=== PATIENT | female | born 1950 | race Caucasian/White ===

== ENCOUNTER 2017-01-17 18:54 | Inpatient (IN) | payer OTHER ==
[~2017-01-17] VITALS: Ht 162.6 cm; Wt 81.6 kg
[2017-01-17 20:05] LABS: BASOPHIL % 0.3 % (0-2); PLATELET COUNT 205 x10^3mcL (130-400)
[2017-01-17 20:08] LABS: RED CELL DISTRIBUTION WIDTH 15.8 % (11.5-14.5)
[2017-01-17 20:32] LABS: CARBON DIOXIDE 23.5 mmol/L (21-32); CREATININE SERUM 1.1 mg/dL (0.6-1.0); POTASSIUM SERUM 3.9 mmol/L (3.5-5.1)
[2017-01-17 20:36] LABS: ALBUMIN 3.9 g/dL (3.4-5.0); BILIRUBIN TOTAL 0.31 mg/dL (0.20-1.00); TOTAL PROTEIN, SERUM 8.1 g/dL (6.4-8.2)
[2017-01-17 22:43] VITALS: BP 145/79
[2017-01-17 22:48] LABS: MAGNESIUM 2.3 mg/dL (1.8-2.4); PHOSPHOROUS 4.1 mg/dL (2.5-4.9)
[2017-01-17 22:49] LABS: CHOLESTEROL/HDL RATIO 5.2
[2017-01-17 22:56] LABS: FREE T4 1.1 ng/dL (0.76-1.46); FREE THYROXINE INDEX 3.2 ug/dL (1.4-4.5); T4(THYROXINE) 8.3 ug/dL (4.7-13.3)
[2017-01-17] MEDS ORDERED: TEMAZEPAM30 MG PO (23:42)
[2017-01-18 00:05] LABS: microscopic required? NO
[2017-01-18 00:07] LABS: T3 TOTAL 0.96 ng/mL
[2017-01-18 00:10] LABS: UA SPECIFIC GRAVITY <=1.005 (1.005-1.035); urine erythrocyte NEGATIVE (NEGATIVE)
[2017-01-18 00:30] LABS: AMPHETAMINE QUAL UR POSITIVE (NEG <=1000)
[2017-01-18] MEDS ORDERED: METOPROLOL TART50 MG PO (04:47)
[2017-01-18] MEDS ORDERED: LEVOTHYROXINE0.05 M2 PO (04:47)
[2017-01-18] MEDS ORDERED: ISOSORBIDE MONO30 MG PO (04:48)
[2017-01-18] MEDS ORDERED: ROPINIROLE HY0.25 MG PO (04:48)
[2017-01-18] MEDS ORDERED: SUMATRIPTAN SU100 M1 PO (04:48)
[2017-01-18] MEDS ORDERED: GABAPENTIN600 M1 PO (04:48)
[2017-01-18] MEDS ORDERED: CYMBALTA30 M1 PO (04:49)
[2017-01-18] MEDS ORDERED: GOOD NEIGHBOR P20 M2 PO (04:49)
[2017-01-18 05:54] LABS: CALCIUM 8.6 mg/dL (8.5-10.1); CARBON DIOXIDE 25.9 mmol/L (21-32); CREATININE SERUM 1.1 mg/dL (0.6-1.0); POTASSIUM SERUM 4.2 mmol/L (3.5-5.1)
[2017-01-18 06:09] VITALS: BP 108/57
[2017-01-18 08:29] VITALS: BP 115/56
[2017-01-18 13:10] VITALS: BP 103/53
[2017-01-18 16:58] VITALS: BP 115/62
[2017-01-18 20:47] VITALS: BP 132/69
[2017-01-19 05:29] VITALS: BP 124/60
[2017-01-19 06:12] LABS: CALCIUM 8.9 mg/dL (8.5-10.1); CARBON DIOXIDE 31.2 mmol/L (21-32); CREATININE SERUM 1.3 mg/dL (0.6-1.0); POTASSIUM SERUM 4.8 mmol/L (3.5-5.1)
[2017-01-19 06:14] LABS: BASOPHIL % 0.4 % (0-2); PLATELET COUNT 188 x10^3mcL (130-400)
[2017-01-19 06:41] LABS: RED CELL DISTRIBUTION WIDTH 15.3 % (11.5-14.5)
[2017-01-19] MEDS ORDERED: ECO81 PO (08:06)
[2017-01-19] MEDS ORDERED: LIPI20 PO (08:06)
[2017-01-19] MEDS ORDERED: PRI20 PO (08:09)
[2017-01-19 08:17] VITALS: BP 124/60
[2017-01-19] MEDS ORDERED: METOPROLOL TART50 MG PO (08:49)
== END 2017-01-19 09:49 | disposition home or self-care (01) | DRG 391 ==
LOC: ED 18:54 → DU 21:13
PROVIDERS: Emergency Medicine; ADMIT Family Medicine
DX: K44.9 Diaphragmatic hernia without obstruction or gangrene (principal); N17.0 Acute kidney failure with tubular necrosis; D68.69 Other thrombophilia; E11.59 Type 2 diabetes mellitus with other circulatory complications; E11.65 Type 2 diabetes mellitus with hyperglycemia; I10 Essential (primary) hypertension; M79.7 Fibromyalgia; G25.81 Restless legs syndrome; E78.5 Hyperlipidemia, unspecified; E03.9 Hypothyroidism, unspecified; G43.909 Migraine, unspecified, not intractable, without status migrainosus; F11.21 Opioid dependence, in remission; F10.10 Alcohol abuse, uncomplicated; E66.9 Obesity, unspecified; Z68.30 Body mass index [BMI] 30.0-30.9, adult; Z98.1 Arthrodesis status; Z87.891 Personal history of nicotine dependence
CPT/HCPCS: 83880; 84439; J2405; J7030; J7040; Q0092